=== PATIENT | male | born 1970 | race Caucasian/White ===

== ENCOUNTER → 2021-11-27 11:00 | Outpatient (BNVA) | payer MEDICARE, MEDICAID, SELFPAY | PROVIDERS: PCP Internal Medicine; Visit Provider Nurse Practitioner Family | DX: Z13.89 Encounter for screening for other disorder (principal) | CPT/HCPCS: 99212 ==

== ENCOUNTER → 2022-06-26 11:55 | Outpatient (BNVA) | payer MEDICARE, MEDICAID, SELFPAY | PROVIDERS: PCP Internal Medicine; Visit Provider Nurse Practitioner Family | DX: F39 Unspecified mood [affective] disorder (principal); G40.109 Localization-related (focal) (partial) symptomatic epilepsy and epileptic syndromes with simple partial seizures, not intractable, without status epilepticus | CPT/HCPCS: Q3014 ==

== ENCOUNTER → 2022-12-25 13:16 | Outpatient (BNVA) | payer MEDICARE, MEDICAID, SELFPAY | PROVIDERS: PCP Internal Medicine; Visit Provider Nurse Practitioner Family | DX: G40.109 Localization-related (focal) (partial) symptomatic epilepsy and epileptic syndromes with simple partial seizures, not intractable, without status epilepticus (principal); F39 Unspecified mood [affective] disorder | CPT/HCPCS: 99212 ==

== ENCOUNTER 2025-08-23 13:30 | Outpatient (REF) | payer MEDICARE, MEDICAID, SELFPAY ==
[2025-08-23 18:09] LABS: MANUAL DIFF FLAG NO
[2025-08-23 18:40] LABS: Alanine Aminotransferase 14 U/L (0-40); Albumin Level 4.4 g/dL (3.5-5.0); Alkaline Phosphatase 73 U/L (39-117); Anion Gap 11 (12-20); Aspartate Amino Transferase 21 U/L (5-37); Blood Urea Nitrogen 20 mg/dL (9-16); Calcium 9.1 mg/dL (8.4-10.2); Carbon Dioxide 28 mmol/L (22-29); Chloride 106 mmol/L (96-108); Estimated Glomerular Filt Rate > 60; Magnesium 2.1 mg/dL (1.6-2.6); Potassium 3.9 mmol/L (3.3-5.1); Sodium 141 mmol/L (135-145); Total Protein 7.2 g/dL (6.5-8.0)
[2025-08-23 18:42] LABS: Hematocrit 42.0 % (42.0-52.0); Hemoglobin 14.0 g/dl (14.0-18.0); Imm Gran Abs Auto 0.02 X10*3/uL (0.00-0.03); Imm Gran Pct Auto 0.2 % (0.0-0.4); Lymphocytes Absolute Auto 2.0 X10*3/uL (1.2-4.9); Mean Corpuscular HGB Conc 33.3 g/dl (31.0-36.0); Mean Corpuscular Hemoglobin 29.0 pg (27.0-33.0); Mean Corpuscular Volume 87.1 fL (80.0-98.0); NRBC Abs Auto 0.000 X10*3/uL (0.0-0.012); NRBC Pct Auto 0.0 /100WBC (0.0-0.2); Platelet Count 284 X10*3/uL (160-400); Red Blood Count 4.82 X10*6/uL (4.60-5.80); White Blood Count 8.6 X10*3/uL (4.8-10.8)
[2025-08-26 14:59] LABS: Levetiracetam Keppra 37.7 mcg/mL (6.0-46.0)
== END 2025-08-23 13:31 | disposition home or self-care (01) ==
LOC: HO.HKASLDS 13:30
PROVIDERS: PCP Internal Medicine; Visit Provider Nurse Practitioner Family
DX: G40.109 Localization-related (focal) (partial) symptomatic epilepsy and epileptic syndromes with simple partial seizures, not intractable, without status epilepticus (principal); F39 Unspecified mood [affective] disorder; E83.41 Hypermagnesemia; Z79.899 Other long term (current) drug therapy
CPT/HCPCS: 36415; 80053; 80177; 83735; 85025; 99212

== ENCOUNTER 2025-08-23 13:30 | Outpatient (AMB) | payer MEDICARE, MEDICAID, SELFPAY ==
--- NOTE | 2025-08-23 13:36 | MHC.OFFVIS ---
Vital Signs 08/23/25 13:47 Weight 141 lb BP 100/60 Blood Pressure Location Rt brachial Position Sitting Pulse 74 Pulse Source Pulse Oximeter Pulse Oximetry (%) 94 Oxygen Delivery Method Room Air Intake Visit Reasons: hospital follow up for seizure Intake Note: Pt presents as a 6 month f/u for epilepsy. PT states It's going well. I've been seizure free for about 5 years. Food Handler Required: No Accompanied by: Self / Same As Patient Allergies No Known Allergies Allergy (Verified 08/23/25 13:37) Medication List - Last Reconciled 08/23/25 by ALICIA Rosa clonazepam 2 mg orally for seizure lasting > 2 minutes, may repeat x's 1 PRN; 30 days MDD 2 levetiracetam 1,000 mg PO Q12H 90 days levetiracetam 250 mg PO Q12H 90 days mirtazapine 7.5 mg PO BEDTIME HPI Comments Details: 52-yr-old male presents for f/u visit of seizure. Patient reports in May, he had an unprovoked generalized tonic-clonic seizure. He denies any preceding infection, trauma, lapse in his levetiracetam dosing. He states prior to this seizure, he fell fine, but then a sudden when he got up he felt some abdominal discomfort and nausea so he went to the bathroom. At that point, he began to have a generalized tonic-clonic seizure, which per patient and [facility] notes lasted at least 30 minutes. His family called EMS, who administered IM Versed 5 mg x2 before seizure stopped. He developed postictal right-sided weakness with left gaze preference. Who is brought to [facility] ER, and underwent stroke workup, which was unremarkable. During the hospital admission, there was not note the Neurology suggested increasing levetiracetam from a 1000 mg twice a day to 1250 mg twice a day, however he was discharged on his usual dose of a 1000 mg twice a day. After discharge, the patient increased his levetiracetam to a 1000 mg 3 times per day, as he believe that this is what he was told to do. Unfortunately, he then completely ran out of his levetiracetam, and then had a breakthrough typical seizure at the end of July without residual effect. After the 2nd seizure, the patient reached out to us again, and we increase the levetiracetam to 1250 mg twice a day. Since, he has been feeling well, at his baseline. States residual right-sided weakness resolved. Mood is stable- has chronic intermittent moodiness, but this is unchanged. He is working on not being stressed. Review of the [facility] Hospital records from both May and July, results were overall unremarkable. Head imaging results were stable. However, is magnesium levels were slightly elevated, and he denies taking any magnesium supplements. Prior to 06/09/2025, his previous seizure in approximately 2018. ?? [facility] Surgical History History of surgery Family History Mother Diabetes Father No known health problems Paternal Grandmother Asthma Alzheimer disease Diabetes Social History Household Members: Family Household Members Other:: Mom, brother, step-father Alcohol intake: never Patient Tobacco Use Status: Current everyday Tobacco user Tobacco use type: Cigarette Cigarettes Per Day: 3 Review of Systems Const All systems reviewed & are unremarkable except as noted in HPI and below Physical Exam Vital Signs: Last Vital Signs Pulse 74 08/23/25 13:47 BP 100/60 08/23/25 13:47 Pulse Ox 94 08/23/25 13:47 Oxygen Delivery Method Room Air 08/23/25 13:47 Const General: cooperative and no acute distress Orientation/consciousness: patient oriented x3 HEENT Head: Yes normocephalic Resp Effort & Inspection: normal respiratory effort and able to speak in complete sentences Neuro General: patient oriented x3 and CN's II-XI intact bilaterally (w/ exception of dysconjugate gaze) Cognition (Neuro): normal cognition Motor exam (neuro): 5/5 motor strength present throughout and Pronator motor function not present Deep tendon reflexes (DTR's): Right patellar reflex intensity grade: 1+ and Left patellar reflex intensity grade: 1+ Psych Appearance: grossly normal Mental Status: mental status grossly normal Speech and movement: Normal speech and movement present Affect: normal affect Attitude: cooperative Thought process: Normal thought process present Thought content: Normal thought content present Insight: Good insight present (Psych) Judgement: Good judgement present (Psych) Results Reviewed Results Reviewed: 08/12/2025: CT Head/Brain W/O Contrast, CT Cervical Spine W/O Contrast INDICATION: Hx of Present Illness: sz; Reason: Trauma; Clinical Question(s): Hematoma; Order Comment: TECHNIQUE: Noncontrast head CT using axial technique was reconstructed in axial and coronal planes. Noncontrast spiral CT through the cervical spine was formatted in 3 planes. Automatic tube modulation was used for the cervical spine and iterative dose reconstruction was used for both the head and cervical spine to optimize scan parameters and image quality. COMPARISON: 02/27/2024 CT head and cervical spine . A 01/07/2025 CT head. FINDINGS: Graphic Manager View Findings, Lines and Tubes: None. BRAIN AND EXTRA-AXIAL SPACES: No parenchymal hemorrhage, midline shift, or mass effect. Momin-white matter differentiation is well preserved. No acute infarct. Persistent significant asymmetric dilation of the left lateral ventricle posterior, occipital and temporal horns, stable from multiple prior studies. Ventricular system is otherwise normal in caliber. No white matter lesions. No subarachnoid hemorrhage. No subdural or epidural collection. CALVARIUM, SKULL BASE, AND SOFT TISSUES: No fractures or suspicious bony lesions. The paranasal sinuses and mastoid air cells are clear. Visualized orbits and globes are intact. The extracranial soft tissues are unremarkable. Small volume scattered gas throughout the venous system in the head and neck, more than typically seen, probably related to introduction of venous air through IV resuscitation efforts. CERVICAL SPINE: No fracture. No acute osseous abnormalities. Old bilateral lamina fractures at C6. Normal alignment. No locked or perched facet. Intervertebral disc spaces and vertebral body heights are preserved. OTHER BONES: No acute abnormality. CERVICAL SOFT TISSUES AND LUNG APICES: Normal soft tissues. Visualized lung apices are clear. IMPRESSION: 1. No acute abnormality of the head or cervical spine. 2. Small volume scattered gas throughout the venous system in the head and neck, more than typically seen, probably related to introduction of venous air through IV resuscitation efforts. 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 Continue increased dose of Keppra 1250mg bid. Check labs- CBC/CMP, Mag, Keppra levels. Continue Mirtazapine 7.5 mg qhs- for sleep/mood. Will follow-up upon review of above and patient to follow-up in clinic in 6 months or sooner prn. Orders: Orders Comprehensive Met. Panel 08/23/25 G40.109 - Localization-related (focal) (partial) symptomatic epilepsy and epileptic syndromes with simple partial seizures, not intractable, without status epilepticus, E83.41 - Hypermagnesemia Complete Blood Count Auto Diff 08/23/25 G40.109 - Localization-related (focal) (partial) symptomatic epilepsy and epileptic syndromes with simple partial seizures, not intractable, without status epilepticus, E83.41 - Hypermagnesemia Magnesium 08/23/25 G40.109 - Localization-related (focal) (partial) symptomatic epilepsy and epileptic syndromes with simple partial seizures, not intractable, without status epilepticus, E83.41 - Hypermagnesemia Levetiracetam Keppra 08/23/25 G40.109 - Localization-related (focal) (partial) symptomatic epilepsy and epileptic syndromes with simple partial seizures, not intractable, without status epilepticus, E83.41 - Hypermagnesemia Coding Level of Care Code Est Pt Level 4 (45134) Diagnoses Focal epilepsy G40.109 Mood disorder F39 Hypermagnesemia E83.41
[2025-08-23 13:47] VITALS: BP 100/60; PULSE 74; O2SAT 94
== END 2025-08-23 14:41 | disposition home or self-care (01) ==
LOC: HO.HSMS 13:31
PROVIDERS: PCP Internal Medicine; Visit Provider Nurse Practitioner Family
DX: G40.109 Localization-related (focal) (partial) symptomatic epilepsy and epileptic syndromes with simple partial seizures, not intractable, without status epilepticus (principal); F39 Unspecified mood [affective] disorder; E83.41 Hypermagnesemia
CPT/HCPCS: 99214